=== PATIENT | male | born 1985 | race Caucasian/White ===

== ENCOUNTER 2020-06-19 20:15 | Emergency (ER) | payer SELFPAY ==
[~2020-06-19] VITALS: Ht 172.7 cm; Wt 103.4 kg
[2020-06-19 20:25] VITALS: BP 168/94
--- NOTE | 2020-06-19 20:41 | ED EENT ---
History of Present Illness General Chief Complaint: Ear Problems Stated Complaint: RT EAR PAIN/LOSS OF HEARING Nursing Triage Note: Patient states that his right ear started hurting last night. Patient woke up this morning with no pain but he can't hear out of it well. He describes his hearing as "muffled". Source: patient Exam Limitations: no limitations History of Present Illness Date Seen by Provider: Jun 19, 2020 Time Seen by Provider: 20:26 Initial Comments the patient presents to the ER by private conveyance with chief complaint of decreased hearing for the past day and some pain in his right ear. He is not having any discharge fever chills nausea or imbalance. He does not put anything in his ear canals. He does not have any recollection of injury to his ears. Does not have frequent ear infections. Allergies and Home Medications Allergies Coded Allergies: No Known Drug Allergies (Unverified , 06/19/20) Patient Home Medication List Home Medication List Reviewed: Yes Review of Systems Review of Systems Constitutional: No chills, No fever Eyes: Denies Blindness, Denies Blurred Vision Ears: See HPI; Denies Dizziness; Pain, Other (decreased hearing right ear) Nose: denies clots, denies congestion Mouth: denies clots, denies pain, denies swelling Throat: denies pain, denies swelling All Other Systems Reviewed Negative Unless Noted: Yes Past Zmtxkxk-Borovd-Lkxnul Hx Patient Social History Alcohol Use: Denies Use Recreational Drug Use: No Smoking Status: Never a Smoker Recent Foreign Travel: No Contact w/Someone Who Travel: No Recent Infectious Disease Expo: No Physical Abuse: No Sexual Abuse: No Mistreated: No Fear: No Seasonal Allergies Seasonal Allergies: No Past Medical History Surgeries: Yes (Kidney Removed as a child) Appendectomy Respiratory: No Cardiac: No Neurological: No Genitourinary: No Gastrointestinal: No Musculoskeletal: No Endocrine: No HEENT: No Cancer: No Psychosocial: No Integumentary: No Physical Exam Vital Signs Vital Signs - First Documented 06/19/20 20:25 Temp 36.6 Pulse 114 Resp 18 B/P (MAP) 168/94 (118) Pulse Ox 99 O2 Delivery Room Air Height, Weight, BMI Height: '" Weight: lbs. oz. kg; 34.00 BMI Method: General Appearance: WD/WN, no apparent distress Eyes: bilateral eye normal inspection, bilateral eye PERRL, bilateral eye EOMI Ears: right ear other (cerumen impaction without tenderness to motion. No erythema of the visible canal.); left ear canal normal, left ear TM normal; bilateral ear auricle normal Nose: normal inspection; No active bleeding, No discharge Mouth/Throat: normal mouth inspection, pharynx normal Neck: full range of motion, normal inspection Respiratory: no respiratory distress, no accessory muscle use Progress/Results/Core Measures Results/Orders Vital Signs/I&O 06/19/20 20:25 Temp 36.6 Pulse 114 Resp 18 B/P (MAP) 168/94 (118) Pulse Ox 99 O2 Delivery Room Air Blood Pressure Mean: 118 Progress Progress Note #1: Time: 20:41 Progress Note Either he has cerumen impaction or there could be infection. Her going to try and gently flush his ear canal out and reexamine. Progress Note #2: Time: 21:09 Progress Note The nurse was able to flush to large cerumen plugs out of both ears. Plan to put him on some is a finding eardrops for prevention. Membranes look okay. Canals are mildly erythematous from being/but do not appear to be infected. Departure Impression Primary Impression: Impacted cerumen Qualified Codes: H61.23 - Impacted cerumen, bilateral Disposition: 01 HOME, SELF-CARE Condition: Improved Departure-Patient Inst. Decision time for Depature: 21:09 Referrals: NO,LOCAL PHYSICIAN (PCP/Family) Primary Care Physician Patient Instructions: Ear Wax Impaction (DC), How to Use Ear Drops Add. 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 Couple drops in each ear once or twice a week to keep this from happening again. You may also make your own solution of equal parts distilled water, rubbing alcohol, white vinegar and hydrogen peroxide. Apply 3 drops of Acetasol HC to each ear 4 times a day for the next 3-5 days to restore the normal ear canal environment and reduce swelling and pain. If you begin to have drainage from your ear, increasing pain or fever then you may have developed an ear canal infection and need to be reexamined. All discharge instructions reviewed with patient and/or family. Voiced understanding. Scripts Acetic Acid/Hydrocortisone (Hydrocortison-Acetic Acid Soln) 10 Ml Drops 3 DROPS OT QID for 5 Days, #10 ML 0 Refills Prov: POORNIMA VILLANUEVA 06/19/20 POORNIMA VILLANUEVA Jun 19, 2020 20:41
[2020-06-19] MEDS ORDERED: ACHC10OT OT (21:13)
== END 2020-06-19 21:15 | disposition home or self-care (01) ==
LOC: ER FS 20:17
DX: H61.21 Impacted cerumen, right ear (principal)
CPT/HCPCS: 69210